=== PATIENT | female | born 2000 | race Two or more races ===

== ENCOUNTER 2021-09-01 19:22 | Emergency (ER) | payer OTHER ==
[~2021-09-01] VITALS: Ht 144.8 cm; Wt 41.7 kg
[2021-09-01] MEDS ORDERED: CONCEPT DHA CA1 EACH (20:45)
== END 2021-09-02 00:14 | disposition home or self-care (01) ==
LOC: ER 19:22
DX: O21.0 Mild hyperemesis gravidarum (principal); Z3A.11 11 weeks gestation of pregnancy

== ENCOUNTER 2024-05-25 12:33 | Emergency (ER) | payer OTHER ==
[~2024-05-25] VITALS: Ht 152.4 cm; Wt 45.4 kg
[~2024-05-25 12:33] MED LIST: CONCEPT DHA CA1 EACH
[2024-05-25 16:12] LABS: HEMATOCRIT 41.7 % (36.0-45.00); HEMOGLOBIN 14.1 g/dL (12.0-15.00); MEAN CELL VOLUME 88.1 fL (80.00-100.00); MEAN CORPUSCULAR HEMOGLOBIN 29.8 pg (27.00-32.0); MEAN CORPUSCULAR HGB CONC 33.8 g/dl (32.0-36.0); PLATELET COUNT 264 K/uL (150-450); RED BLOOD COUNT 4.74 M/uL (4.00-6.00); RED CELL DISTRIBUTION WIDTH 12.7 % (11.5-14.5)
[2024-05-25] MEDS ORDERED: CEFTRIAXONE SODIUM 1,000 MG VIAL IM STA (18:51)
[2024-05-25] MEDS ORDERED: METHYLPREDNISOLONE SOD SUCC 125 MG VIAL IM STA (18:51)
[2024-05-25] MEDS ORDERED: METHYLPREDNISOLONE SOD SUCC 125 MG VIAL ONE (18:57)
[2024-05-25] MEDS ORDERED: CEFTRIAXONE SODIUM 1,000 MG VIAL ONE (18:57)
== END 2024-05-25 19:46 | disposition home or self-care (01) ==
LOC: ER 12:35
DX: J40 Bronchitis, not specified as acute or chronic (principal)